=== PATIENT | female | born 1960 | race Caucasian/White ===

== ENCOUNTER → 2016-10-10 | Day surgery (SDC) | payer MEDICARE ==
[~2016-10-10] VITALS: Ht 165.1 cm; Wt 132.4 kg
[~2016-10-10] MED LIST: ATENOLOL50 MG PO; CELEXA40 MG PO; METFORMIN HCL500 M2 PO; NEURONTIN 300300 MG PO; PRILOSEC OTC20 MG PO; PRINIVIL5 MG PO; VITAMIN B12-FO1 EACH PO; VITAMIN D350000 UNIT PO; ZOCOR40 MG PO
== END | disposition home or self-care (01) ==
LOC: OR 07:37
PROVIDERS: Internal Medicine Gastroenterology
PROC: 0DBP8ZZ Excision of Rectum, Via Natural or Artificial Opening Endoscopic (ICD-10-PCS; principal; 2016-10-10 12:30)
DX: Z12.11 Encounter for screening for malignant neoplasm of colon (principal); K62.1 Rectal polyp; K64.0 First degree hemorrhoids; I10 Essential (primary) hypertension; E11.9 Type 2 diabetes mellitus without complications; G89.29 Other chronic pain; M54.9 Dorsalgia, unspecified; M19.90 Unspecified osteoarthritis, unspecified site; E66.9 Obesity, unspecified; Z68.42 Body mass index [BMI] 45.0-49.9, adult; Z88.2 Allergy status to sulfonamides; Z79.84 Long term (current) use of oral hypoglycemic drugs; Z79.899 Other long term (current) drug therapy; Z90.49 Acquired absence of other specified parts of digestive tract; Z98.51 Tubal ligation status
CPT/HCPCS: 82962; J7030

== ENCOUNTER → 2020-07-05 | Outpatient (CLI) | payer OTHER ==
[2020-07-05 13:43] LABS: HEMOGLOBIN 13.7 gm/dl (12.3-15.3); RED BLOOD COUNT 4.51 M/UL (4.00-5.10)
[2020-07-05 14:02] LABS: BUN/CREATININE RATIO 22 (0-10)
[2020-07-06 07:11] LABS: HBSAG SCREEN Negative (Negative); HCV AB <0.1 (0.0-0.9); HEP B CORE AB, TOT Negative (Negative)
== END ==
LOC: LAB 12:38
PROVIDERS: Internal Medicine
DX: M19.90 Unspecified osteoarthritis, unspecified site (principal); D89.89 Other specified disorders involving the immune mechanism, not elsewhere classified; M25.50 Pain in unspecified joint; R76.8 Other specified abnormal immunological findings in serum; Z79.899 Other long term (current) drug therapy; Z11.59 Encounter for screening for other viral diseases
CPT/HCPCS: 36415; 73565; 80053; 83520; 85025; 85652; 86140; 86704; 86803; 87340

== ENCOUNTER → 2021-08-29 | Outpatient (CLI) | payer MEDICARE | LOC: HEART 5 11:00 | DX: I48.91 Unspecified atrial fibrillation (principal) ==

== ENCOUNTER 2021-11-28 05:15 | Emergency (ER) | payer MEDICARE ==
[2021-11-28] MEDS ORDERED: CEPHALEXIN500 M1 PO (06:01)
[2021-11-28] MEDS ORDERED: DOXYCYCLINE HY100 M2 PO (06:01)
== END 2021-11-28 06:30 | disposition home or self-care (01) ==
LOC: ER1 05:15
DX: R06.00 Dyspnea, unspecified (principal); L03.116 Cellulitis of left lower limb; L03.115 Cellulitis of right lower limb; I48.91 Unspecified atrial fibrillation; E11.9 Type 2 diabetes mellitus without complications; I50.9 Heart failure, unspecified; Z90.89 Acquired absence of other organs; Z90.710 Acquired absence of both cervix and uterus; Z88.2 Allergy status to sulfonamides
CPT/HCPCS: 81001; 87086; 99284